=== PATIENT | female | born 1965 | race Two or more races ===

== ENCOUNTER 2023-07-10 08:51 | Emergency (ER) | payer BC ==
[~2023-07-10] VITALS: Ht 167.6 cm; Wt 113.4 kg
[2023-07-10] MEDS ORDERED: DIOVAN160 M1 PO (09:24)
[2023-07-10] MEDS ORDERED: LIPITOR40 M1 PO (09:24)
[2023-07-10] MEDS ORDERED: LEVO-T50 MCG (09:25)
[2023-07-10] MEDS ORDERED: GLUMETZA500 MG (09:26)
[2023-07-10] MEDS ORDERED: ZANAFLEX4 M1 (09:26)
[2023-07-10] MEDS ORDERED: CEFTRIAXONE SODIUM 1,000 MG VIAL IM STA (11:12)
[2023-07-10] MEDS ORDERED: METHYLPREDNISOLONE SOD SUCC 125 MG VIAL IM STA (11:13)
== END 2023-07-10 11:50 | disposition home or self-care (01) ==
LOC: ER 08:52
DX: J06.9 Acute upper respiratory infection, unspecified (principal); Z20.822 Contact with and (suspected) exposure to COVID-19